=== PATIENT | female | born 1975 | race Hispanic/Latino ===

== ENCOUNTER 2021-08-19 21:40 | Emergency (ER) | payer OTHER ==
[~2021-08-19] VITALS: Ht 154.9 cm; Wt 98.0 kg
[2021-08-19] MEDS ORDERED: NORVASC5 MG PO (22:41)
[2021-08-19] MEDS ORDERED: ZYLOPRIM100 MG PO (22:41)
[2021-08-19] MEDS ORDERED: ADULT ASPIRIN R81 MG PO (22:42)
[2021-08-19] MEDS ORDERED: LIPITOR80 MG PO (22:43)
[2021-08-19] MEDS ORDERED: CALCITRIOL0.25 MCG PO (22:44)
[2021-08-19] MEDS ORDERED: CEFDINIR300 MG PO (22:45)
[2021-08-19] MEDS ORDERED: DOSOQUIN TABLE1 EACH PO (22:46)
[2021-08-19] MEDS ORDERED: CIMETIDINE400 MG PO (22:47)
[2021-08-19] MEDS ORDERED: CATAPRES-TTS 11 EACH TD (22:47)
[2021-08-19] MEDS ORDERED: DILTIAZEM 24HR240 M1 PO (22:48)
[2021-08-19] MEDS ORDERED: DIALYVITE VIT125 MCG PO (22:48)
[2021-08-19] MEDS ORDERED: COL-RITE100 MG PO (22:49)
[2021-08-19] MEDS ORDERED: DORZOLAMIDE 2%10 ML OP (22:50)
[2021-08-19] MEDS ORDERED: ARNUITY ELLIPT50 MCG INH (22:51)
[2021-08-19] MEDS ORDERED: GABAPENTIN100 MG PO (22:52)
[2021-08-19] MEDS ORDERED: GENTAMICIN SULF15 G2 TOP (22:53)
[2021-08-19] MEDS ORDERED: HEPARIN IV (22:54)
[2021-08-19] MEDS ORDERED: HUMULIN N100 UNIT/1 SUB-Q (22:55)
[2021-08-19] MEDS ORDERED: BASAGLAR K100 UNIT/1 SUB-Q (22:56)
[2021-08-19] MEDS ORDERED: HYDROXYZINE PAM25 MG PO (22:56)
[2021-08-19] MEDS ORDERED: EUTHYROX125 MCG PO (22:57)
[2021-08-19] MEDS ORDERED: METOPROLOL SUC100 MG PO (22:58)
[2021-08-19] MEDS ORDERED: ONDANSETRON ODT8 MG PO ×3 (22:58→23:51)
[2021-08-19] MEDS ORDERED: VELPHORO500 MG PO (22:59)
[2021-08-19] MEDS ORDERED: VITAMIN B122500 MCG (23:01)
[2021-08-19] MEDS ORDERED: PIOGLITAZONE HC15 MG PO (23:03)
[2021-08-19] MEDS ORDERED: PROZAC10 MG PO (23:04)
[2021-08-19] MEDS ORDERED: TIMOLOL MALEATE5 M2 OP (23:05)
[2021-08-19] MEDS ORDERED: TORSEMIDE20 MG PO (23:06)
[2021-08-19] MEDS ORDERED: TUMS ULTRA400 MG PO (23:07)
[2021-08-19] MEDS ORDERED: ZOLPIDEM TARTRAT5 MG PO (23:08)
--- OUTSIDE RECORDS SUMMARY | 2021-08-20 00:03 | XMS ---
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 EShayy VISIT COUNT (12 MO.) 1 PATRICIO Daly TOTAL 1 NOTE: Visits indicate total known visits. ED/UCC VISIT TRACKING (12 MO.) 08/19/2021 21:[address] [facility] TYPE: Emergency COMPLAINT: - COUGH, VOMITING INPATIENT VISIT TRACKING (12 MO.) No inpatient visits to display in this time frame [email or web address]
== END 2021-08-20 00:47 | disposition home or self-care (01) ==
LOC: ED 21:40 → EDSEX 21:42 → ED 21:42
DX: B34.9 Viral infection, unspecified (principal); Z20.822 Contact with and (suspected) exposure to COVID-19; I10 Essential (primary) hypertension; E07.9 Disorder of thyroid, unspecified; E11.9 Type 2 diabetes mellitus without complications; Z79.82 Long term (current) use of aspirin; Z79.4 Long term (current) use of insulin; Z79.890 Hormone replacement therapy; Z79.899 Other long term (current) drug therapy
CPT/HCPCS: 74022; 80048; 81001; 83880; 85025; 96374; 99284-25; C9803; J2405; U0003